=== PATIENT | male | born 1935 | race Caucasian/White ===

== ENCOUNTER → 2018-07-01 | Outpatient (CLI) | payer OTHER | END | disposition home or self-care (01) | LOC: OIH 09:28 | PROVIDERS: ATTEND Internal Medicine Cardiovascular Disease | DX: I71.2 Thoracic aortic aneurysm, without rupture (principal); J84.10 Pulmonary fibrosis, unspecified; I70.0 Atherosclerosis of aorta; M47.894 Other spondylosis, thoracic region; I71.4 Abdominal aortic aneurysm, without rupture; I12.9 Hypertensive chronic kidney disease with stage 1 through stage 4 chronic kidney disease, or unspecified chronic kidney disease; E11.22 Type 2 diabetes mellitus with diabetic chronic kidney disease; N18.9 Chronic kidney disease, unspecified; Z87.891 Personal history of nicotine dependence | CPT/HCPCS: 71250 ==

== ENCOUNTER 2018-08-26 07:58 | Day surgery (SDC) | payer OTHER ==
[2018-08-26 08:54] VITALS: BP 118/66
--- NOTE | 2018-08-26 08:59 | NUR ---
ASSESSMENT PT HERE FOR PROCEDURE. DENIES ANY PAIN AT THIS TIME.
[2018-08-26] MEDS ORDERED: IOHEXOL 350 MG/ML 100ML INFUS..BTL IV ONE (09:36)
[2018-08-26] MEDS ORDERED: SODIUM CHLORIDE 0.9% 1000ML 1,000 ML IV ONE (09:56)
[2018-08-26 10:06] VITALS: BP 132/72
--- NOTE | 2018-08-26 10:14 | NUR ---
PROCEDURE PT BACK FROM PROCEDURE. DOING WELL. AT BEDSIDE.
[2018-08-26 11:00] VITALS: BP 144/78
[2018-08-26 12:00] VITALS: BP 133/80
[2018-08-26 13:00] VITALS: BP 118/61
--- NOTE | 2018-08-26 14:06 | NUR ---
DISCHARGE ORAL AND WRITTEN DISCHARGE INSTRUCTIONS GIVEN TO PT AND PTS . NO OTHER QUESTIONS AT THIS TIME. ENCOURAGED TO DRINK FLUIDS AT HOME. VERBALIZED UNDERSTANDING.
== END 2018-08-26 14:30 | disposition home or self-care (01) ==
LOC: DAH 07:58 → EDSTATUS 09:00 → DAH 14:30
PROVIDERS: ATTEND Internal Medicine Cardiovascular Disease
DX: I71.2 Thoracic aortic aneurysm, without rupture (principal); I71.4 Abdominal aortic aneurysm, without rupture; I77.4 Celiac artery compression syndrome; J90 Pleural effusion, not elsewhere classified; J47.9 Bronchiectasis, uncomplicated; I25.10 Atherosclerotic heart disease of native coronary artery without angina pectoris; I51.7 Cardiomegaly; M47.895 Other spondylosis, thoracolumbar region; M41.85 Other forms of scoliosis, thoracolumbar region; K76.0 Fatty (change of) liver, not elsewhere classified; N28.89 Other specified disorders of kidney and ureter; K57.93 Diverticulitis of intestine, part unspecified, without perforation or abscess with bleeding; N32.89 Other specified disorders of bladder; I12.9 Hypertensive chronic kidney disease with stage 1 through stage 4 chronic kidney disease, or unspecified chronic kidney disease; E11.22 Type 2 diabetes mellitus with diabetic chronic kidney disease; N18.9 Chronic kidney disease, unspecified; E78.5 Hyperlipidemia, unspecified; Z87.891 Personal history of nicotine dependence; Z79.4 Long term (current) use of insulin; J43.9 Emphysema, unspecified; R06.03 Acute respiratory distress; I46.9 Cardiac arrest, cause unspecified; R55 Syncope and collapse
CPT/HCPCS: 71275; 74174; 82948; 96360; 96361; A4606; J7030; Q9967